=== PATIENT | male | born 1985 | race Caucasian/White ===

== ENCOUNTER 2017-10-07 18:17 | Emergency (ER) | payer OTHER, SELFPAY ==
[2017-10-07 18:25] VITALS: BP 134/75; PULSE 62; RESP 18; TEMP 36.9; O2SAT 100; BMI 29.8
--- NOTE | 2017-10-07 18:32 | ED.NEUROSD ---
HPI - Neuro Symptoms/Deficit General Chief Complaint: Neuro Symptoms/Deficit Stated Complaint: LOST CONTROL OF FUNCTION/TINGLY OF LEFT SIDE OF FA Time Seen by Provider: 10/07/17 18:20 Source: patient and family Mode of arrival: ambulatory Limitations: no limitations History of Present Illness HPI Narrative: Patient presents to the emergency department today with a series of interesting symptoms that started with him entering his car and thinking he may have bumped his head. His states that he did not strike his head and there is no external evidence of such. Immediately thereafter the patient became quite confused and was unable to follow simple instructions. He felt unable to move his arms and was not responding to his though he was awake and remembers her talking to him. He denies any ongoing symptoms such as headache and states all of his neurologic symptoms have resolved. At no point did he have blurred vision, trouble with speech or unilateral findings such as facial weakness or extremity troubles. His symptoms had completely resolved prior to his arrival. He denies any history of the same and has had no recent illness or injury. Patient admits to being under tremendous stress at home Onset (ago): minute(s) Timing confirmed by: spouse Location: altered History of same: No Severity: moderate Quality: weak, numb, tingling and improving Relieving factors: none Exacerbating factors: none Context: sudden onset On Anticoagulants: No Associated symptoms: confusion Related Data Allergies Allergy/AdvReac Type Severity Reaction Status Date / Time No Known Drug Allergies Allergy Verified 10/07/17 18:29 Review of Systems Review of Systems All systems reviewed & are unremarkable except as noted in HPI and below Constitutional Denies chills, Denies fever(s), Denies lethargy and Reports weakness Eyes Denies change in vision, Denies eye discharge, Denies irritation and Denies loss of vision ENT Ears, Nose, Mouth, and Throat: Denies change in voice, Denies neck pain and Denies sore throat Cardiovascular Denies chest pain, Denies irregular heart rhythm, Denies lightheadedness, Denies palpitations, Reports dyspnea, Denies dyspnea on exertion and Denies orthopnea Respiratory Denies cough, Reports dyspnea, Denies dyspnea on exertion and Denies wheezing Gastrointestinal Gastrointestinal: Denies abdominal pain, Denies change in bowel habits, Denies diarrhea, Denies nausea and Denies vomiting Musculoskeletal Denies neck pain and Reports tingling Integumentary/Breasts Denies pruritus, Denies erythema, Denies rash and Denies wounds Neurologic Reports as per HPI, Reports confusion, Denies loss of vision, Reports tingling, Reports paresthesias and Reports weakness Psychiatric Denies anxiety, Reports confusion, Denies depression, Denies homicidal ideation and Denies suicidal ideation Endocrine Denies palpitations Hematologic/Lymphatic Denies easy bruising Allergic/Immunologic Denies wheezing PFSH Social History Smoking Status: Never smoker Exam Narrative Exam Narrative: Pleasant 32-year-old male in no obvious distress though slightly anxious regarding the symptoms that brought him here Initial Vital Signs Initial Vital Signs: Vital Signs Temperature 98.4 F 10/07/17 18:25 Pulse Rate 62 10/07/17 18:25 Respiratory Rate 18 10/07/17 18:25 Blood Pressure 134/75 H 10/07/17 18:25 Pulse Oximetry 100 10/07/17 18:25 Const General: cooperative and well developed Nutritional Appearance: well nourished Orientation: alert, awake, oriented x3 and not confused HENOH Head: normocephalic and atraumatic Ears: external ears normal and TM's normal bilaterally Nose: external nose normal and No nasal discharge Face and sinus: sinuses nontender, face symmetric, no sinus tenderness and No dry mucous membranes Mouth: oral mucosae normal and moist mucous membranes Teeth and gingiva: dentition normal Throat: tonsils normal and uvula midline Eyes General: appearance normal, both eyes and all related structures Eyelids: eyelids normal Conjunctivae: conjunctivae normal Sclera: sclerae normal Pupils: PERRL EOM: EOM intact bilaterally Neck Neck: normal visual inspection, trachea midline, No lymphadenopathy, No midline deformity and No JVD Lymphatic: No lymphedema Chest Chest: normal inspection of the chest Resp Effort & Inspection: normal respiratory effort, able to speak in complete sentences, no respiratory distress and no use of accessory muscles Auscultation: clear to auscultation bilaterally, no rales, no rhonchi and no wheezes Cardio Rate: regular rate Rhythm: regular rhythm Heart Sounds: no click, no gallops, no murmurs and no rubs Pulses: normal peripheral pulses GI Inspection: non-distended Palpation: soft, no hepatosplenomegaly, No guarding, No pulsatile mass and No tender Auscultation: normal bowel sounds Back/Spine/Pelvis Back: No CVA tenderness Cervical Spine: cervical ROM normal and No pain with cervical ROM Thoracic/Lumbar Spine: thoracic and lumbar spine normal to inspection Skin General: no rashes or lesions noted, No jaundice and No petechiae Neuro General: alert, awake, oriented x3, gait normal, tone normal, moves all extremities, no focal motor deficits and CN's II-XI intact bilaterally Cognition: normal cognition Speech: speech normal Gait: normal gait Motor: muscle tone normal throughout Sensory Exam: no sensory deficits noted Other: NIH Stroke Scale 1a. LOC: Patient is alert and keenly responsive (0) 1b. LOC Questions: Patient answers both LOC questions accurately (0) 1c. LOC Commands: Patient performs both tasks correctly (0) 2. Best Gaze: Normal (0) 3. Visual: No visual loss (0) 4. Facial palsy: Normal symmetrical movements (0) 5. Motor arm: No drift (0) 6. Motor leg: No drift (0) 7. Limb ataxia: Absent (0) 8. Sensory: Normal (0) 9. Best language: No aphasia; normal (0) 10. Dysarthria: Normal (0) 11. Extinction and inattention: No abnormality (0) NIHSS: 0 Extrem General: full ROM, no clubbing, cyanosis or edema, no pedal edema and no calf tenderness Psych Appearance: well kempt Mental Status: mental status grossly normal Attitude: cooperative Thought Content: normal and suicidality Judgment: judgment good Course Orders Ordered: ED Orders 10/07/17 18:34 Basic Metabolic Panel Stat Partial Thromboplastin Time Stat Prolactin Stat Prothrombin Time INR Stat 10/07/17 18:49 CT head/brain wo con Stat EKG-12 Lead Stat 10/07/17 19:03 Rapid Drug Screen, Urine Stat Discontinued Medications Sodium Chloride (Normal Saline 0.9%) 1,000 mls @ 150 mls/hr IV CONT SHAWN Last Infusion: 10/07/17 20:11 Dose: 150 mls/hr Admin: 10/07/17 19:06 Dose: 150 mls/hr Reevaluation(s) Reevaluation #1: Patient continues to be at baseline and denies any ongoing symptoms Time: 19:50 Vital Signs - 8 hr 10/07/17 19:53 10/07/17 20:12 Temperature 98.3 F Pulse Rate 62 62 Respiratory Rate 20 20 Blood Pressure 124/74 H Blood Pressure [Left Arm] 124/74 H Pulse Oximetry 98 98 MDM - Neuro Symptoms/Deficit Differential Diagnosis Likely delirium, subarachnoid hemorrhage, cerebrovascular accident and transient cerebral ischemia Medical Records Attestation: I reviewed the patient's medical records. Lab Data Attestation: I reviewed the patient's lab results. Result diagrams: 10/07/17 18:34 Lab Results 10/07/17 10/07/17 10/07/17 Range/Units 18:34 18:34 18:34 PT 11.9 (10.1-12.7) SECONDS INR 1.1 (0.9-1.3) APTT 31 (26.4-36.2) SECONDS Sodium 141 (137-145) mmol/L Potassium 3.8 (3.4-5.1) mmol/L Chloride 100 (98-107) mmol/L Carbon Dioxide 28 (22-32) mmol/L BUN 16 (9-20) mg/dL Creatinine 0.80 (0.66-1.25) mg/dL Estimated GFR > 60.0 (>60) mL/min BUN/Creatinine Ratio 20.0 (6-22) Glucose 92 (70-100) mg/dL Calcium 9.3 (8.4-10.2) mg/dL Prolactin 20.1 H (3.7-17.9) ng/mL Urine Opiates Screen (Negative) Ur Oxycodone Screen (Negative) Urine Methadone Screen (Negative) Ur Barbiturates Screen (Negative) U Tricyclic Antidepress (Negative) Ur Phencyclidine Scrn (Negative) Ur Amphetamines Screen (Negative) U Methamphetamines Scrn (Negative) Ur MDMA Scrn (Ecstasy) (Negative) U Benzodiazepines Scrn (Negative) Urine Cocaine Screen (Negative) U Marijuana (THC) Screen (Negative) 10/07/17 Range/Units 19:03 PT (10.1-12.7) SECONDS INR (0.9-1.3) APTT (26.4-36.2) SECONDS Sodium (137-145) mmol/L Potassium (3.4-5.1) mmol/L Chloride (98-107) mmol/L Carbon Dioxide (22-32) mmol/L BUN (9-20) mg/dL Creatinine (0.66-1.25) mg/dL Estimated GFR (>60) mL/min BUN/Creatinine Ratio (6-22) Glucose (70-100) mg/dL Calcium (8.4-10.2) mg/dL Prolactin (3.7-17.9) ng/mL Urine Opiates Screen Negative (Negative) Ur Oxycodone Screen Negative (Negative) Urine Methadone Screen Negative (Negative) Ur Barbiturates Screen Negative (Negative) U Tricyclic Antidepress Negative (Negative) Ur Phencyclidine Scrn Negative (Negative) Ur Amphetamines Screen Negative (Negative) U Methamphetamines Scrn Negative (Negative) Ur MDMA Scrn (Ecstasy) Negative (Negative) U Benzodiazepines Scrn Negative (Negative) Urine Cocaine Screen Negative (Negative) U Marijuana (THC) Screen Negative (Negative) Imaging Data CT scan - head: Radiologist's impression: View Report History [address] [address] [address] Scan Report Signed Patient: PERICO BRANDON MR#: [id number] : 1985 Acct:[id number] Age/Sex: 32 / M Date of Service: 10/07/17 Loc: ED Accession Number: [id number] Procedure: CT head/brain wo con Ordering Provider: Mega Zapien D.O. PROCEDURE: CT HEAD/BRAIN WO CON INDICATIONS: stroke like symptoms, numbness, tingling TECHNIQUE: Noncontrast 4.5 mm thick angled axial sections acquired from the foramen magnum to the vertex, with coronal and sagittal reformats. For radiation dose reduction, the following was used: automated exposure control, adjustment of mA and/or kV according to patient size. COMPARISON: None. FINDINGS: Image quality: Excellent. CSF spaces: Basal cisterns are patent. No extra-axial fluid collections. Ventricles are normal in size and shape. Brain: No intracranial hemorrhage, mass, or mass effect. Buchanan-white matter interface is preserved. Skull and face: Calvarium and visualized facial bones are intact, without suspicious lesions. Sinuses: Visualized sinuses and mastoids are clear. IMPRESSION: 1. No acute intracranial abnormality. Dictated by: Clovis Huitron M.D. on 10/07/2017 at 19:18 Approved by: Clovis Huitron M.D. on 10/07/2017 at 19:20 Discharge Plan Departure Patient Disposition: Home, Self-Care Clinical Impression: Near syncope Discharge Date/Time: 10/07/17 20:14 Interventions: ED Discharge Assessment Last Done: 10/07/17 20:12 Instructions: DI for Syncope in Adults (Fainting) Activity Restrictions/Additional Instructions: *You have been diagnosed with [ near syncope ] *What to do: * lay low for the next few days, drink plenty of fluids, avoid significant caffeine or any nicotine or alcohol. *Follow up with your primary care provider in 2-3 days, call tomorrow morning for an appointment and let them know you are in the emergency department at [facility] *Return to ER if you should have any new, worsening or concerning symptoms Referrals: Togn Ibanez MD [Non-Staff] - Stand Alone Forms: Work/School Restrictions
--- NOTE | 2017-10-07 18:38 | PC.NURSE ---
Pt reports at 1730 he felt like he hit his head getting into vehicle, as witness states she does not believe so. He reports after this, he had trouble getting my arm (lt) to work, this resolved within minutes. His only complaint at time of exam is a posterior headache he describes as pressure. Negative FAST exam, neuro exam unremarkable, denies nausea/vomiting/diarrhea/cp/soa/cough or recent illness
--- NOTE | 2017-10-07 18:49 | DI.CT.S_ITS ---
PROCEDURE: CT HEAD/BRAIN WO CON INDICATIONS: stroke like symptoms, numbness, tingling TECHNIQUE: Noncontrast 4.5 mm thick angled axial sections acquired from the foramen magnum to the vertex, with coronal and sagittal reformats. For radiation dose reduction, the following was used: automated exposure control, adjustment of mA and/or kV according to patient size. COMPARISON: None. FINDINGS: Image quality: Excellent. CSF spaces: Basal cisterns are patent. No extra-axial fluid collections. Ventricles are normal in size and shape. Brain: No intracranial hemorrhage, mass, or mass effect. Buchanan-white matter interface is preserved. Skull and face: Calvarium and visualized facial bones are intact, without suspicious lesions. Sinuses: Visualized sinuses and mastoids are clear. IMPRESSION: 1. No acute intracranial abnormality. Dictated by: Clovis Huitron M.D. on 10/07/2017 at 19:18 Approved by: Clovis Huitron M.D. on 10/07/2017 at 19:20
[2017-10-07 19:03] LABS: INR 1.1 (0.9-1.3); Prothrombin Time 11.9 SECONDS (10.1-12.7)
[2017-10-07 19:06] LABS: PTT Partial Thromboplastin Tim 31 SECONDS (26.4-36.2)
[2017-10-07] MEDS: SODIUM CHLORIDE 0.9% 1,000 ML 150 ML IV (19:06)
[2017-10-07 19:07] LABS: Blood Urea Nitrogen 16 mg/dL (9-20); Calcium 9.3 mg/dL (8.4-10.2); Carbon Dioxide 28 mmol/L (22-32); Chloride 100 mmol/L (98-107); Estimated Glomerular Filt Rate > 60.0 mL/min (>60); Glucose 92 mg/dL (70-100); HEMOLYSIS 27 (0-50); Potassium 3.8 mmol/L (3.4-5.1); Sodium 141 mmol/L (137-145)
[2017-10-07 19:24] LABS: Prolactin 20.1 ng/mL (3.7-17.9)
[2017-10-07 19:42] LABS: Urine Amphetamines Negative (Negative); Urine Barbiturates Negative (Negative); Urine Benzodiazepines Negative (Negative); Urine Cocaine Negative (Negative); Urine MDMA Negative (Negative); Urine Methadone Negative (Negative); Urine Methamphetamines Negative (Negative); Urine Morphine/Opi cutoff 2000 Negative (Negative); Urine Oxycodone Negative (Negative); Urine Phencyclidine Negative (Negative); Urine Tetrahydrocannabinol Negative (Negative); Urine Tricyclic Antidepressant Negative (Negative)
[2017-10-07 19:53] VITALS: BP 124/74; PULSE 62; RESP 20; O2SAT 98
[2017-10-07 20:12] VITALS: BP 124/74; PULSE 62; RESP 20; TEMP 36.8; O2SAT 98
== END 2017-10-07 20:14 | disposition home or self-care (01) ==
PROVIDERS: Emergency Provider Emergency Medicine
DX: R55 Syncope and collapse (principal)
CPT/HCPCS: 36591; 70450; 80048; 80305; 81003; 84146; 85610; 85730; 93005; 96360; 99283; 99285; 99291